=== PATIENT | male | born 1985 | race Caucasian/White ===

== ENCOUNTER → 2020-11-22 | Outpatient (CLI) | payer OTHER | LOC: SLEEP 14:25 | DX: G47.33 Obstructive sleep apnea (adult) (pediatric) (principal); E29.1 Testicular hypofunction; G47.00 Insomnia, unspecified; M13.0 Polyarthritis, unspecified; R23.2 Flushing; R51.9 Headache, unspecified | CPT/HCPCS: 95810 ==